=== PATIENT | female | born 1995 | race Caucasian/White ===

== ENCOUNTER 2022-06-28 14:15 | Inpatient (IN) | payer OTHER ==
[~2022-06-28] VITALS: Ht 177.8 cm; Wt 79.4 kg
[2022-07-06] MEDS ORDERED: PRENATAL + DHA1 EAC1 PO (13:42)
== END 2022-07-08 11:22 | disposition home or self-care (01) | DRG 807 ==
LOC: LDR 07-06 12:36 → OB/GYN 07-06 12:36 → LDR 07-10 14:15
PROVIDERS: ADMIT Obstetrics & Gynecology; ATTEND Obstetrics & Gynecology
PROC: 10E0XZZ Delivery of Products of Conception, External Approach (ICD-10-PCS; principal; 2022-07-06)
PROC: 0KQM0ZZ Repair Perineum Muscle, Open Approach (ICD-10-PCS; 2022-07-06)
PROC: 4A1HXCZ Monitoring of Products of Conception, Cardiac Rate, External Approach (ICD-10-PCS; 2022-07-06)
DX: O70.1 Second degree perineal laceration during delivery (principal); Z37.0 Single live birth; Z3A.39 39 weeks gestation of pregnancy; Z20.822 Contact with and (suspected) exposure to COVID-19